=== PATIENT | female | born 1960 | race Caucasian/White ===

== ENCOUNTER 2016-07-06 14:00 | Emergency (ER) | payer OTHER | END 2016-07-06 17:50 | disposition home or self-care (01) | LOC: ER1 14:00 | DX: S09.90XA Unspecified injury of head, initial encounter (principal); S16.1XXA Strain of muscle, fascia and tendon at neck level, initial encounter; I10 Essential (primary) hypertension; J44.9 Chronic obstructive pulmonary disease, unspecified; F17.200 Nicotine dependence, unspecified, uncomplicated; Y09 Assault by unspecified means; Y92.009 Unspecified place in unspecified non-institutional (private) residence as the place of occurrence of the external cause | CPT/HCPCS: 70450; 72125; 99283 ==

== ENCOUNTER 2020-11-19 02:29 | Emergency (ER) | payer OTHER ==
[~2020-11-19 02:29] MED LIST: BUMEX IV 00.25 MG/ML PO; KEFLEX CAP 500500 MG PO; PREDNISONE20 MG PO; PROAIR HFA8.5 GM INH; VIBRAMYCIN100 MG PO; ZITHROMAX500 MG PO
[2020-11-19] MEDS ORDERED: PERCOCET 5/325 T1 EA PO (06:19)
== END 2020-11-19 06:54 | disposition home or self-care (01) ==
LOC: ER1 02:29
DX: S50.12XA Contusion of left forearm, initial encounter (principal); E11.9 Type 2 diabetes mellitus without complications; K21.9 Gastro-esophageal reflux disease without esophagitis; I10 Essential (primary) hypertension; E78.5 Hyperlipidemia, unspecified; Z79.4 Long term (current) use of insulin; F17.210 Nicotine dependence, cigarettes, uncomplicated; W20.8XXA Other cause of strike by thrown, projected or falling object, initial encounter
CPT/HCPCS: 29125; 73080; 73090; 73200; 96374; 96375; 99284; J2270; J2405

== ENCOUNTER 2021-03-08 14:12 | Emergency (ER) | payer OTHER ==
[~2021-03-08 14:12] MED LIST changes: +PERCOCET 5/325 T1 EA PO
[2021-03-08] MEDS ORDERED: HYDROCODON-ACE1 EAC4 PO (19:34)
== END 2021-03-08 19:55 | disposition home or self-care (01) ==
LOC: ER1 14:12
DX: S52.122A Displaced fracture of head of left radius, initial encounter for closed fracture (principal); E11.9 Type 2 diabetes mellitus without complications; I10 Essential (primary) hypertension; W19.XXXA Unspecified fall, initial encounter
CPT/HCPCS: 29105; 73080; 99283

== ENCOUNTER → 2021-03-23 | Outpatient (CLI) | payer OTHER ==
[~2021-03-23] MED LIST changes: +HYDROCODON-ACE1 EAC4 PO
== END ==
LOC: HEART 5 08:25
DX: R60.9 Edema, unspecified (principal); I10 Essential (primary) hypertension
CPT/HCPCS: 93306

== ENCOUNTER 2021-04-10 19:00 | Observation (INO) | payer OTHER ==
[~2021-04-10] VITALS: Ht 152.4 cm; Wt 132.9 kg
[2021-04-10 20:00] LABS: HEMOGLOBIN 11.4 gm/dl (12.3-15.3); RED BLOOD COUNT 4.7 M/UL (4.00-5.10); WHITE BLOOD COUNT 18.5 K/UL (4.5-11.0)
[2021-04-10 20:38] LABS: BUN/CREATININE RATIO 24 (0-10)
[2021-04-11 09:36] LABS: RED BLOOD COUNT 4.47 M/UL (4.00-5.10); WHITE BLOOD COUNT 15.7 K/UL (4.5-11.0)
[2021-04-11] MEDS ORDERED: PRAMIPEXOLE DIHY1 MG PO (10:40)
[2021-04-11] MEDS ORDERED: SYMBICORT 16010.2 GM INH (10:41)
[2021-04-11] MEDS ORDERED: BUPROPION HCL150 M1 PO (10:41)
[2021-04-11] MEDS ORDERED: BROMFED DM COU473 ML PO (10:41)
[2021-04-11] MEDS ORDERED: CITALOPRAM HBR20 MG PO (10:42)
[2021-04-11] MEDS ORDERED: CYCLOBENZAPRINE10 MG PO (10:42)
[2021-04-11] MEDS ORDERED: GABAPENTIN300 MG PO (10:42)
[2021-04-11] MEDS ORDERED: CLARITIN10 MG PO (10:43)
[2021-04-11] MEDS ORDERED: BACTRIM DS TAB1 EACH PO (10:44)
[2021-04-11] MEDS ORDERED: LIPITOR TAB 2020 MG PO (10:45)
[2021-04-11] MEDS ORDERED: PROAIR HFA8.5 GM INH (10:45)
[2021-04-11] MEDS ORDERED: TRULICITY1.5 MG/0.5 SQ (10:46)
[2021-04-11] MEDS ORDERED: CELEBREX200 MG PO (10:46)
[2021-04-11] MEDS ORDERED: LISINOPRIL20 MG PO (10:47)
[2021-04-11] MEDS ORDERED: HYDROCHLOROTHIA25 MG PO (10:47)
[2021-04-11] MEDS ORDERED: METFORMIN HCL500 MG PO (10:48)
[2021-04-11] MEDS ORDERED: OMEPRAZOLE20 MG PO (10:48)
[2021-04-11] MEDS ORDERED: MYCOSTATIN CREA15 GM TOP (10:48)
[2021-04-11] MEDS ORDERED: POTASSIUM CHLO10 MEQ PO (10:49)
[2021-04-11] MEDS ORDERED: LASIX40 MG PO (10:49)
[2021-04-11] MEDS ORDERED: LANTUS SOL100 UNIT/1 SC ×2 (10:50→15:45)
[2021-04-11] MEDS ORDERED: HUMALOG100 UNIT/3 SC ×2 (10:51→15:45)
[2021-04-12 06:57] LABS: HEMOGLOBIN 10.1 gm/dl (12.3-15.3); RED BLOOD COUNT 4.19 M/UL (4.00-5.10)
[2021-04-12 07:01] LABS: WHITE BLOOD COUNT 11.2 K/UL (4.5-11.0)
--- NOTE | 2021-04-13 04:19 | NUR ---
2130 CLEANED PATIENTS LEGS WITH SOAP AND WATER, PAT DRY, REPLACED THE DISPOSABLE CHUCKS WITH NEW ONES AND APPLIED OOINTMENT TO PATIENTS LEGS. PATIENTS TOLERATED WELL AND STATED THAT SHE FELT SOME RELIEF TO THE ITCHING AND SORENESS.ALSO APPLIED SLING TO HER LEFT ARM.
--- NOTE | 2021-04-13 06:21 | NUR ---
SPOKE TO DR SALEEM DURING HER ROUNDS AND INFORMED HER THAT THE PATIENTS HOME MEDS ARE STILL NOT APPROVED BY PROVIDER, PATIENT HAS A FX LEFT ELBOW AND CAME TO THE FLOOR HOLDING HER CAST IN HER HAND (03/16 FX), AND NEEDED SOME TYPE OF OINTMENT FOR HER LEGS. DR SALEEM DID PUT MEDS IN AND ORDER X RAYS FOR ELBOW, ORTH CONSULT FOR LEFT HIP AND ELBOW.
[2021-04-13 07:00] LABS: HEMOGLOBIN 10.4 gm/dl (12.3-15.3); RED BLOOD COUNT 4.29 M/UL (4.00-5.10); WHITE BLOOD COUNT 12.1 K/UL (4.5-11.0)
[2021-04-13 07:35] LABS: BUN/CREATININE RATIO 24 (0-10)
--- NOTE | 2021-04-13 20:32 | NUR ---
0 DURING INITAL SHIFT ASSESSMENT ON PATIENT THE SLING THAT I APPLIED TO HER LEFT ARM ON 04/12/21 WAS ON THE FLOOR IN FRONT OF THE DOOR. I PICKED IT UP AND ASKED THE PATIENT IF I COULD REAPPLY AND SHE STATED " I DON'T WANT THAT THING BACK ON IT HURTS MY ARM AND NECK". I PLACED THE SLING ON THE COUNTER AND WILL ATTEMPT TO REAPPLY AGAIN.
[2021-04-14 07:38] LABS: HEMOGLOBIN 10.7 gm/dl (12.3-15.3); RED BLOOD COUNT 4.33 M/UL (4.00-5.10)
[2021-04-14 07:58] LABS: BUN/CREATININE RATIO 26 (0-10)
== END 2021-04-14 15:17 | disposition home or self-care (01) ==
LOC: ER1 19:00 → CDU 04-11 03:18 → M/S 04-11 03:18
PROVIDERS: Family Medicine; Internal Medicine; ADMIT Internal Medicine
DX: M25.552 Pain in left hip (principal); R10.32 Left lower quadrant pain; E11.9 Type 2 diabetes mellitus without complications; I11.0 Hypertensive heart disease with heart failure; I50.32 Chronic diastolic (congestive) heart failure; J96.11 Chronic respiratory failure with hypoxia; I87.8 Other specified disorders of veins; E66.01 Morbid (severe) obesity due to excess calories; N17.9 Acute kidney failure, unspecified; D72.829 Elevated white blood cell count, unspecified; J44.9 Chronic obstructive pulmonary disease, unspecified; I25.10 Atherosclerotic heart disease of native coronary artery without angina pectoris; F17.210 Nicotine dependence, cigarettes, uncomplicated; K42.9 Umbilical hernia without obstruction or gangrene; M62.82 Rhabdomyolysis; Z99.81 Dependence on supplemental oxygen; Z96.622 Presence of left artificial elbow joint; Z79.4 Long term (current) use of insulin; Z79.899 Other long term (current) drug therapy; Z20.822 Contact with and (suspected) exposure to COVID-19
CPT/HCPCS: 0240U; 71045; 73080; 73502; 73718; 80048; 80053; 81001; 82550; 82553; 82962; 83605; 83735; 83874; 83880; 84484; 85025; 85027; 85610; 86140; 87040; 87086; 93005; 93971; 94640; 94664; 94760; 96365; 96375; 97161; 99284; G0378; J1644; J1885; J1940; J2360; J2543; J2550; J7030

== ENCOUNTER 2021-11-19 10:16 | Inpatient (IN) | payer OTHER ==
[~2021-11-19] VITALS: Ht 157.5 cm; Wt 139.0 kg
[~2021-11-19 10:16] MED LIST changes: +BACTRIM DS TAB1 EACH PO; +BROMFED DM COU473 ML PO; +BUPROPION HCL150 M1 PO; +CELEBREX200 MG PO; +CITALOPRAM HBR20 MG PO; +CLARITIN10 MG PO; +CYCLOBENZAPRINE10 MG PO; +GABAPENTIN600 MG PO; +HUMALOG100 UNIT/3 SC; +HUMALOG100 UNIT/3 SQ; +HYDROCHLOROTHIA25 MG PO; +LANTUS SOL100 UNIT/1 SC; +LANTUS SOL100 UNIT/1 SQ; +LASIX40 MG PO; +LIPITOR TAB 2020 MG PO; +LISINOPRIL20 MG PO; +METFORMIN HCL500 MG PO; +MYCOSTATIN CREA15 GM TOP; +OMEPRAZOLE20 MG PO; +POTASSIUM CHLO10 MEQ PO; +PRAMIPEXOLE DIHY1 MG PO; +SYMBICORT 16010.2 GM INH; +TRULICITY1.5 MG/0.5 SQ
[2021-11-19 10:50] LABS: RED BLOOD COUNT 4.71 M/UL (4.00-5.10); WHITE BLOOD COUNT 9.3 K/UL (4.5-11.0)
[2021-11-20 05:10] LABS: HEMOGLOBIN 10.7 gm/dl (12.3-15.3); RED BLOOD COUNT 4.77 M/UL (4.00-5.10)
[2021-11-20 05:13] LABS: WHITE BLOOD COUNT 6.2 K/UL (4.5-11.0)
[2021-11-20] MEDS ORDERED: OZEMPIC0.25 MG/0. SQ (11:23)
[2021-11-21 04:53] LABS: HEMOGLOBIN 11.1 gm/dl (12.3-15.3); RED BLOOD COUNT 4.87 M/UL (4.00-5.10); WHITE BLOOD COUNT 6.7 K/UL (4.5-11.0)
[2021-11-21 05:11] LABS: BUN/CREATININE RATIO 57 (0-10)
[2021-11-22 04:27] LABS: HEMOGLOBIN 10.8 gm/dl (12.3-15.3); RED BLOOD COUNT 4.73 M/UL (4.00-5.10)
[2021-11-23 07:19] LABS: RED BLOOD COUNT 4.82 M/UL (4.00-5.10)
[2021-11-23 07:20] LABS: WHITE BLOOD COUNT 9.5 K/UL (4.5-11.0)
[2021-11-23 07:48] LABS: BUN/CREATININE RATIO 62 (0-10)
[2021-11-24 04:12] LABS: HEMOGLOBIN 11.1 gm/dl (12.3-15.3); RED BLOOD COUNT 4.89 M/UL (4.00-5.10)
[2021-11-24 04:27] LABS: WHITE BLOOD COUNT 6.8 K/UL (4.5-11.0)
[2021-11-24 04:31] LABS: BUN/CREATININE RATIO 57 (0-10)
[2021-11-25 04:20] LABS: HEMOGLOBIN 10.9 gm/dl (12.3-15.3); RED BLOOD COUNT 4.81 M/UL (4.00-5.10)
[2021-11-25 04:23] LABS: WHITE BLOOD COUNT 10.3 K/UL (4.5-11.0)
[2021-11-25 04:38] LABS: BUN/CREATININE RATIO 53 (0-10)
[2021-11-26 02:09] LABS: HEMOGLOBIN 11.3 gm/dl (12.3-15.3); RED BLOOD COUNT 4.98 M/UL (4.00-5.10); WHITE BLOOD COUNT 10.6 K/UL (4.5-11.0)
[2021-11-26 02:34] LABS: BUN/CREATININE RATIO 52 (0-10)
[2021-11-27 06:25] LABS: HEMOGLOBIN 12.5 gm/dl (12.3-15.3); RED BLOOD COUNT 5.44 M/UL (4.00-5.10); WHITE BLOOD COUNT 11.8 K/UL (4.5-11.0)
[2021-11-27 06:59] LABS: BUN/CREATININE RATIO 51 (0-10)
[2021-11-28 05:56] LABS: WHITE BLOOD COUNT 12.2 K/UL (4.5-11.0)
[2021-11-28 05:57] LABS: RED BLOOD COUNT 4.82 M/UL (4.00-5.10)
[2021-11-28 06:11] LABS: BUN/CREATININE RATIO 44 (0-10)
[2021-11-29 06:29] LABS: HEMOGLOBIN 11.5 gm/dl (12.3-15.3); RED BLOOD COUNT 5.07 M/UL (4.00-5.10); WHITE BLOOD COUNT 10.3 K/UL (4.5-11.0)
[2021-11-29 06:51] LABS: BUN/CREATININE RATIO 41 (0-10)
[2021-11-30 06:25] LABS: HEMOGLOBIN 11.2 gm/dl (12.3-15.3); RED BLOOD COUNT 4.88 M/UL (4.00-5.10); WHITE BLOOD COUNT 10.3 K/UL (4.5-11.0)
[2021-11-30 06:58] LABS: BUN/CREATININE RATIO 41 (0-10)
[2021-12-01 06:14] LABS: HEMOGLOBIN 10.5 gm/dl (12.3-15.3); RED BLOOD COUNT 4.66 M/UL (4.00-5.10); WHITE BLOOD COUNT 10.1 K/UL (4.5-11.0)
[2021-12-01 06:57] LABS: BUN/CREATININE RATIO 31 (0-10)
[2021-12-01] MEDS ORDERED: SPIRIVA HANDIH18 MCG INH (13:12)
[2021-12-01] MEDS ORDERED: FUROSEMIDE40 MG PO (13:12)
[2021-12-01] MEDS ORDERED: PROAIR HFA8.5 GM INH (13:12)
--- NOTE | 2021-12-01 16:06 | NUR ---
CALLED REPORT TO [facility]. SPOKE WITH JACOBO ARELLANO.
--- NOTE | 2021-12-01 18:10 | NUR ---
PATIENT VOIDED AT [id number] WITH NO DIFFICULTY. WILL MOVE FORWARD WITH DISCHARGE.
== END 2021-12-01 18:24 | disposition home or self-care (01) | DRG 177 ==
LOC: ER1 10:16 → CDU 15:42 → MED SURG 4 15:42 → CCU 15:42 → PROG CARE 11-25 14:25 → MED SURG 4 11-27 01:24
PROVIDERS: Internal Medicine; Internal Medicine Pulmonary Disease; Student in an Organized Health Care Education/Training Program; ADMIT Internal Medicine
PROC: 8E0ZXY6 Isolation (ICD-10-PCS; principal; 2021-11-19)
PROC: XW033E5 Introduction of Remdesivir Anti-infective into Peripheral Vein, Percutaneous Approach, New Technology Group 5 (ICD-10-PCS; 2021-11-19)
PROC: 3E0333Z Introduction of Anti-inflammatory into Peripheral Vein, Percutaneous Approach (ICD-10-PCS; 2021-11-19)
PROC: 5A09357 Assistance with Respiratory Ventilation, Less than 24 Consecutive Hours, Continuous Positive Airway Pressure (ICD-10-PCS; 2021-11-19)
PROC: 5A0935A Assistance with Respiratory Ventilation, Less than 24 Consecutive Hours, High Flow/Velocity Cannula (ICD-10-PCS; 2021-11-20)
PROC: 5A09357 Assistance with Respiratory Ventilation, Less than 24 Consecutive Hours, Continuous Positive Airway Pressure (ICD-10-PCS; 2021-11-20)
PROC: 5A09357 Assistance with Respiratory Ventilation, Less than 24 Consecutive Hours, Continuous Positive Airway Pressure (ICD-10-PCS; 2021-11-21)
PROC: 5A0935A Assistance with Respiratory Ventilation, Less than 24 Consecutive Hours, High Flow/Velocity Cannula (ICD-10-PCS; 2021-11-22)
PROC: 5A0935A Assistance with Respiratory Ventilation, Less than 24 Consecutive Hours, High Flow/Velocity Cannula (ICD-10-PCS; 2021-11-22)
PROC: 5A09357 Assistance with Respiratory Ventilation, Less than 24 Consecutive Hours, Continuous Positive Airway Pressure (ICD-10-PCS; 2021-11-23)
PROC: 5A09357 Assistance with Respiratory Ventilation, Less than 24 Consecutive Hours, Continuous Positive Airway Pressure (ICD-10-PCS; 2021-11-24)
DX: U07.1 COVID-19 (principal); I21.A1 Myocardial infarction type 2; I50.33 Acute on chronic diastolic (congestive) heart failure; J12.82 Pneumonia due to coronavirus disease 2019; J96.21 Acute and chronic respiratory failure with hypoxia; J96.22 Acute and chronic respiratory failure with hypercapnia; J15.9 Unspecified bacterial pneumonia; J44.0 Chronic obstructive pulmonary disease with (acute) lower respiratory infection; J44.1 Chronic obstructive pulmonary disease with (acute) exacerbation; E66.2 Morbid (severe) obesity with alveolar hypoventilation; N17.9 Acute kidney failure, unspecified; E87.2 Acidosis; Z68.43 Body mass index [BMI] 50.0-59.9, adult; I11.0 Hypertensive heart disease with heart failure; I87.8 Other specified disorders of veins; K76.0 Fatty (change of) liver, not elsewhere classified; D64.9 Anemia, unspecified; I87.2 Venous insufficiency (chronic) (peripheral); F17.210 Nicotine dependence, cigarettes, uncomplicated; E11.65 Type 2 diabetes mellitus with hyperglycemia; Z99.81 Dependence on supplemental oxygen; Z79.4 Long term (current) use of insulin; Z28.310 Unvaccinated for COVID-19; Z98.891 History of uterine scar from previous surgery; Z98.890 Other specified postprocedural states; Z83.6 Family history of other diseases of the respiratory system; I25.2 Old myocardial infarction
CPT/HCPCS: 0240U; 36415; 36600; 71045; 80048; 80053; 82550; 82553; 82803; 82962; 83036; 83605; 83735; 83880; 84100; 84484; 85025; 85027; 85379; 85384; 86140; 87040; 87081; 93005; 94640; 94660; 94664; 94760; 96372; 96374; 96375; 97110; 97116; 97116-GP-CQ; 97162; 97167; 97530; 97530-GP-CQ; 99285; J0248; J0456; J0696; J1100; J1650; J1940; J3475; J7030; Q9967